=== PATIENT | female | born 1995 | race Caucasian/White ===

== ENCOUNTER 2019-01-30 13:50 | Emergency (ER) | payer OTHER, SELFPAY ==
[2019-01-30 13:59] VITALS: BP 134/72; PULSE 125; RESP 15; TEMP 37.1; O2SAT 98; BMI 31.1
--- NOTE | 2019-01-30 14:20 | ED.ABDPAIN ---
HPI - Abdominal Pain General Chief Complaint: Abdominal Pain Stated Complaint: Abdominal Pain, sent in from Walk in Time Seen by Provider: 01/30/19 14:02 Source: patient Mode of arrival: ambulatory Limitations: no limitations History of Present Illness HPI narrative: 23-year-old female comes to the emergency department complaint abdominal pain for the last 2 days. She states it woke her up from sleep at about 3:00 a.m. in the morning. Patient states that it sort of the left, started lower it has moved up a little bit more umbilical. Patient states that it does not radiate to the flank. She denies any fevers or chills. She denies any nausea or vomiting. She has had normal bowel movements. She states that she has not any had any urinary urgency frequency or dysuria. She has had vaginal bleeding that is been going on for about a month. It has been very light occasional spotting. Patient states she has had very irregular menses sometimes going several weeks or months without any bleeding and then will have prolonged periods of bleeding. She states this started after she had a Nexplanon in place a little less than a year ago. She denies any odor or other discharge. She states she has not been sexually active for several weeks. She defers any pain medication at this time. Denies any other medical issues. Denies any abdominal surgeries. Related Data Home Medications Medication Instructions Recorded Confirmed Excedrin 1 tab PO PRN PRN 01/30/19 01/30/19 etonogestrel [Nexplanon] 1 ea SUBDERMAL DIRECTED 01/30/19 01/30/19 Previous Rx's Medication Instructions Recorded doxycycline hyclate 100 mg PO BID #28 cap 01/30/19 Allergies Allergy/AdvReac Type Severity Reaction Status Date / Time No Known Drug Allergies Allergy Verified 01/30/19 13:59 Review of Systems Review of Systems ROS Unobtainable: All systems reviewed & are unremarkable except as noted in HPI and below Constitutional Denies chills, Denies fever(s), Denies lethargy and Denies weakness Gastrointestinal Gastrointestinal: Reports abdominal pain, Denies melena, Denies hematochezia, Denies change in bowel habits, Denies diarrhea, Denies nausea and Denies vomiting Genitourinary Reports abnormal menses, Reports abnormal vaginal bleeding, Denies hematuria, Denies urinary frequency, Denies dysuria, Reports pelvic pain (Left lower quadrant), Denies flank pain, Denies urinary incontinence, Denies urinary hesitancy, Denies urinary urgency, Denies vaginal discharge, Denies vaginal odor and Denies vaginal pruritus Musculoskeletal Denies back pain Integumentary/Breasts Denies rash Neurologic Denies weakness [facility] Social History Smoking Status: Current every day smoker Exam Narrative Exam Narrative: GENERAL: Alert and oriented x three, well-nourished, well-appearing female in no acute distress. HEENT: Head normocephalic, atraumatic, EOMI, pupils reactive, face symmetric, moist mucous membranes NECK: Supple, full range of motion CARDIOVASCULAR: Regular rate and rhythm without murmurs, rubs or gallops. RESPIRATORY: Breath sounds equal bilaterally, no wheezes rales or rhonchi. ABDOMEN: Soft, patient has very mild left mid quadrant tenderness. No RLQ tenderness. Normoactive bowel sounds all 4 quadrants. No guarding or rebound, rigidity, no mass : No CVA tenderness. Female: external vaginal exam is normal, no vaginal bleeding, scant brownish discharge, no bright red blood, no cervical motion tenderness, normal speculum exam, no adnexal tenderness/mass. Bimanual exam is normal, no enlarged or tender uterus. Non-gravid. EXTREMITIES: Normal range of motion, no clubbing or edema. Neurovascularly intact NEUROLOGICAL: Cranial nerves II through XII grossly intact. Moving all extremities SKIN: Warm, dry, no petechiae, no rashes or lesions. Initial Vital Signs Initial Vital Signs: Vital Signs Temperature 98.8 F 01/30/19 13:59 Pulse Rate 125 H 01/30/19 13:59 Respiratory Rate 15 01/30/19 13:59 Blood Pressure 134/72 01/30/19 13:59 Pulse Oximetry 98 01/30/19 13:59 Course Orders Ordered: ED Orders 01/30/19 14:05 Complete Blood Count AUTO DIFF Stat Comprehensive Metabolic Panel Stat Lipase Stat Partial Thromboplastin Time Stat Prothrombin Time INR Stat 01/30/19 14:38 US pelvic complete Stat 01/30/19 15:45 Chlamydia/Gonorrhea RNA APTIMA Stat Genital Culture Stat Wet Prep Tric BV Quiana Stat Discontinued Medications Ceftriaxone Sodium (Rocephin) 250 mg IM NOW ONE Stop: 01/30/19 16:31 Last Admin: 01/30/19 16:59 Dose: 250 mg Vital Signs - 8 hr 01/30/19 13:59 01/30/19 14:43 Temperature 98.8 F Pulse Rate 125 H 103 H Respiratory Rate 15 Blood Pressure 134/72 Blood Pressure [Left Arm] 120/79 Pulse Oximetry 98 99 MDM - Abdominal Pain Lab Data Attestation: I reviewed the patient's lab results. Result diagrams: 01/30/19 14:05 01/30/19 14:05 Lab Results 01/30/19 01/30/19 01/30/19 Range/Units 14:05 14:05 14:05 WBC 12.1 H (4.5-11.0) X10^3/uL RBC 4.13 (4.0-5.2) X10^6/uL Hgb 13.0 (12.0-16.0) g/dL Hct 38.2 (36-46) % MCV 92.6 (80-100) fL MCH 31.5 (26-34) PG MCHC 34.1 (30-36) % RDW 13.4 (11.6-14.8) % Plt Count 274 (150-400) X10^3/uL Neut % (Auto) 74.8 (50-75) % Lymph % (Auto) 18.7 L (25-40) % Clark % (Auto) 5.3 (3-14) % Eos % (Auto) 0.8 L (2-4) % Baso % (Auto) 0.4 (0-2) % Neut # (Auto) 9100 H (8020-3664) /uL Lymph # (Auto) 2300 (0732-1964) /uL Clark # (Auto) 600 (0-900) /uL Eos # (Auto) 100 (0-450) /uL Baso # (Auto) 0 (0-100) /uL PT 12.0 (10.1-12.7) SECONDS INR 1.0 (0.9-1.3) APTT 38 H (26.4-36.2) SECONDS Sodium 141 (137-145) mmol/L Potassium 3.8 (3.4-5.1) mmol/L Chloride 106 (98-107) mmol/L Carbon Dioxide 22 (22-32) mmol/L BUN 11 (7-17) mg/dL Creatinine 0.70 (0.52-1.04) mg/dL Estimated GFR > 60.0 (>60) mL/min BUN/Creatinine Ratio 15.7 (6-22) Glucose 111 H (70-100) mg/dL Calcium 9.7 (8.4-10.2) mg/dL Total Bilirubin 1.3 (0.2-1.3) mg/dL AST 22 (14-36) IU/L ALT 18 (9-52) IU/L Alkaline Phosphatase 48 (38-126) U/L Total Protein 8.0 (6.3-8.2) g/dL Albumin 4.7 (3.5-5.0) g/dL Globulin 3.3 (1.7-4.1) g/dL Albumin/Globulin Ratio 1.4 (1.0-2.8) Lipase 36 (23-300) U/L Point of care testing: Point of Care Testing Test Results Negative Urine Dip Bedside Urine Glucose Negative Bedside Urine Bilirubin - Negative Bedside Urine Ketone - Negative Urine Specific Pe Ell 1.030 Bedside Urine Occult Blood - Negative Bedside Urine pH 6.0 Bedside Urine Protein - Negative Bedside Urine Urobilinogen - Negative Bedside Urine Nitrite - Negative Bedside Urine Leukocytes - Negative Esterase Imaging Data pelvic US: Radiologist's impression: Ethan Guadalupe 23 F 1995 [place] [address] Ultrasound Report Signed Patient: Ethan Guadalupe LMR#: [id number] : 1995Acct:[id number] Age/Sex: 23 FDate of Service: 01/30/19 Loc: ED Accession Number: [id number] Procedure: US pelvic complete Ordering Provider: Monse Proctor D.O. PROCEDURE: US PELVIC COMPLETE INDICATIONS: PELVIC PAIN TECHNIQUE: Real-time scanning was performed of the pelvic organs, with image documentation. Additional endovaginal scanning was necessary due to incomplete visualization of the adnexal and endometrial structures by transabdominal scanning. COMPARISON: [facility] Digital Imaging, US, US OB LIMITED, 07/17/2017, 12:46. [facility] Ultrasound, US, US OB > 14 WEEKS COMPLETE ANATOMY, 07/13/2017, 8:57. [facility] Ultrasound, US, US OB > 14 WEEKS FOLLOW UP, 05/30/2017, 16:55. FINDINGS: Transabdominal scanning: Limited scanning through the kidneys shows no hydronephrosis. No pathologic free abdominal or pelvic fluid. Endovaginal scanning: Uterus: Uterus is normal in size at 5.7 x 4.0 x 3.0 cm. The endometrium measures 3 mm in combined thickness. No focal myometrial lesions are identified. No fluid is seen within the endometrium. Ovaries: The right ovary measures 4.1 x 3.6 x 2.9 cm, which is mildly enlarged related to a simple appearing 2.2 cm right ovarian cyst. Additional small right ovarian follicles are present. Blood flow is demonstrated to the right ovary, which demonstrated normal arterial Doppler waveform. The left ovary measures 2.8 x 3.3 x 1.8 cm and is normal in size without cyst or solid mass. Left ovarian follicles are present. A normal arterial Doppler waveform of the left ovary is identified. Slight hyperemia within the left adnexal region is incidentally noted. IMPRESSION: 1. Left adnexal hyperemia is of uncertain etiology and could potentially represent early pelvic inflammatory disease. No drainable or loculated fluid collections are evident. If there is clinical concern for abscess or other pelvic pathology, please consider CT with intravenous and oral contrast for further evaluation. 2. Simple appearing right ovarian cyst is likely functional and of doubtful significance. 3. Unremarkable uterus. Dictated by: Kobi White M.D. on 01/30/2019 at 15:01 Approved by: Kobi White M.D. on 01/30/2019 at 15:06 [facility] Narrative Medical decision making narrative: Patient's abdominal exam is fairly benign. We discussed potential differential could include colitis, diverticulitis, ovarian cyst, PID versus cervicitis, UTI and/or pyelonephritis. Discussed with patient urine is negative for signs of infection or hematuria, making kidney stone less likely along with pyelonephritis or UTI. Patient has had some abnormal vaginal bleeding which she relates to her Nexplanon. But no other discharge. She has not recently been sexually active. We discussed colitis versus diverticulitis but plan to start with ultrasound for evaluation. Lab work shows a slightly elevated white count but otherwise no acute changes. Ultrasound shows some left adnexal hyperemia of uncertain etiology. Is a simple appearing right ovarian cyst likely functional in doubtful insignificant. Unremarkable uterus. On pelvic exam patient has a minimal amount of brownish discharge although she has been having some vaginal bleeding. Discussed with patient we did do STD testing she has been sexually active. She was only mildly tender on exam but discussed starting her on antibiotics while awaiting culture results. Patient has many WBC's on wet prep. Cultures are pending, G/C is pending. Discharge Plan Departure Patient Disposition: Home Clinical Impression: Abdominal pain, Acute pelvic inflammatory disease (PID) Discharge Date/Time: 01/30/19 17:16 Instructions: DI for Pelvic Inflammatory Disease Activity Restrictions/Additional Instructions: Follow up in the next 5-7 days for recheck. Take antibiotics until completely gone. Antibiotics can interfere with control. Use a back up method until done with your antibiotics. Pelvic cultures are pending and will be completed in 24-48 hours. Return to the emergency department for fevers greater than 100.4 F, worsening abdominal or back pain, persistent vomiting, black or bloody stools, worsening vaginal bleeding or other new or concerning symptoms. Prescriptions: New doxycycline hyclate 100 mg capsule 100 mg PO BID Qty: 28 RF: 0 No Action Nexplanon 68 mg Implant 1 ea subdermal DIRECTED RF: 0 Excedrin 1 tab PO PRN PRN (Reason: Headache) RF: 0
[2019-01-30 14:31] LABS: Add Manual Diff / Slide Review NO; Basophils Absolute Auto 0 /uL (0-100); Basophils Percent Auto 0.4 % (0-2); Eosinophils Absolute Auto 100 /uL (0-450); Eosinophils Percent Auto 0.8 % (2-4); Hematocrit 38.2 % (36-46); Lymphocytes Absolute Auto 2300 /uL (1100-4500); Lymphocytes Percent Auto 18.7 % (25-40); Mean Corpuscular HGB Conc 34.1 % (30-36); Mean Corpuscular Hemoglobin 31.5 PG (26-34); Mean Corpuscular Volume 92.6 fL (80-100); Monocytes Absolute Auto 600 /uL (0-900); Monocytes Percent Auto 5.3 % (3-14); Neutrophils Absolute Auto 9100 /uL (1500-7000); Neutrophils Percent Auto 74.8 % (50-75); Platelet Count 274 X10^3/uL (150-400); Red Blood Cell Count 4.13 X10^6/uL (4.0-5.2); Red Cell Distribution Width 13.4 % (11.6-14.8); White Blood Cell Count 12.1 X10^3/uL (4.5-11.0)
[2019-01-30 14:36] LABS: PTT Partial Thromboplastin Tim 38 SECONDS (26.4-36.2)
[2019-01-30 14:38] LABS: Alanine Aminotransferase 18 IU/L (9-52); Albumin 4.7 g/dL (3.5-5.0); Albumin Globulin Ratio 1.4 (1.0-2.8); Alkaline Phosphatase 48 U/L (38-126); Aspartate Aminotransferase 22 IU/L (14-36); BUN Creatinine Ratio 15.7 (6-22); Bilirubin Total 1.3 mg/dL (0.2-1.3); Blood Urea Nitrogen 11 mg/dL (7-17); Calcium 9.7 mg/dL (8.4-10.2); Carbon Dioxide 22 mmol/L (22-32); Chloride 106 mmol/L (98-107); Estimated Glomerular Filt Rate > 60.0 mL/min (>60); Globulin 3.3 g/dL (1.7-4.1); Glucose 111 mg/dL (70-100); HEMOLYSIS < 15 (0-50); Lipase 36 U/L (23-300); Potassium 3.8 mmol/L (3.4-5.1); Sodium 141 mmol/L (137-145)
--- NOTE | 2019-01-30 14:38 | DI.US.S_ITS ---
PROCEDURE: US PELVIC COMPLETE INDICATIONS: PELVIC PAIN TECHNIQUE: Real-time scanning was performed of the pelvic organs, with image documentation. Additional endovaginal scanning was necessary due to incomplete visualization of the adnexal and endometrial structures by transabdominal scanning. COMPARISON: [facility] With [facility] Digital Imaging, US, US OB LIMITED, 07/17/2017, 12:46. [facility] Ultrasound, US, US OB > 14 WEEKS COMPLETE ANATOMY, 07/13/2017, 8:57. [facility] Ultrasound, US, US OB > 14 WEEKS FOLLOW UP, 05/30/2017, 16:55. FINDINGS: Transabdominal scanning: Limited scanning through the kidneys shows no hydronephrosis. No pathologic free abdominal or pelvic fluid. Endovaginal scanning: Uterus: Uterus is normal in size at 5.7 x 4.0 x 3.0 cm. The endometrium measures 3 mm in combined thickness. No focal myometrial lesions are identified. No fluid is seen within the endometrium. Ovaries: The right ovary measures 4.1 x 3.6 x 2.9 cm, which is mildly enlarged related to a simple appearing 2.2 cm right ovarian cyst. Additional small right ovarian follicles are present. Blood flow is demonstrated to the right ovary, which demonstrated normal arterial Doppler waveform. The left ovary measures 2.8 x 3.3 x 1.8 cm and is normal in size without cyst or solid mass. Left ovarian follicles are present. A normal arterial Doppler waveform of the left ovary is identified. Slight hyperemia within the left adnexal region is incidentally noted. IMPRESSION: 1. Left adnexal hyperemia is of uncertain etiology and could potentially represent early pelvic inflammatory disease. No drainable or loculated fluid collections are evident. If there is clinical concern for abscess or other pelvic pathology, please consider CT with intravenous and oral contrast for further evaluation. 2. Simple appearing right ovarian cyst is likely functional and of doubtful significance. 3. Unremarkable uterus. Dictated by: Kobi White M.D. on 01/30/2019 at 15:01 Approved by: Kobi White M.D. on 01/30/2019 at 15:06
[2019-01-30 14:43] VITALS: BP 120/79; PULSE 103; O2SAT 99
--- NOTE | 2019-01-30 14:46 | ED_ITS ---
HPI - Abdominal Pain General Chief Complaint: Abdominal Pain Stated Complaint: Abdominal Pain, sent in from [facility] Time Seen by Provider: 01/30/19 14:02 Source: patient Mode of arrival: ambulatory Limitations: no limitations History of Present Illness HPI narrative: 23-year-old female comes to the emergency department complaint abdominal pain for the last 2 days. She states it woke her up from sleep at about 3:00 a.m. in the morning. Patient states that it sort of the left, started lower it has moved up a little bit more umbilical. Patient states that it does not radiate to the flank. She denies any fevers or chills. She denies any nausea or vomiting. She has had normal bowel movements. She states that she has not any had any urinary urgency frequency or dysuria. She has had vaginal bleeding that is been going on for about a month. It has been very light occasional spotting. Patient states she has had very irregular menses sometimes going several weeks or months without any bleeding and then will have prolonged periods of bleeding. She states this started after she had a Nexplanon in place a little less than a year ago. She denies any odor or other discharge. She states she has not been sexually active for several weeks. She defers any pain medication at this time. Denies any other medical issues. Denies any abdominal surgeries. Related Data Home Medications Medication Instructions Recorded Confirmed Excedrin 1 tab PO PRN PRN 01/30/19 01/30/19 etonogestrel [Nexplanon] 1 ea SUBDERMAL DIRECTED 01/30/19 01/30/19 Previous Rx's Medication Instructions Recorded doxycycline hyclate 100 mg PO BID #28 cap 01/30/19 Allergies Allergy/AdvReac Type Severity Reaction Status Date / Time No Known Drug Allergies Allergy Verified 01/30/19 13:59 Review of Systems Review of Systems ROS Unobtainable: All systems reviewed & are unremarkable except as noted in HPI and below Constitutional Denies chills, Denies fever(s), Denies lethargy and Denies weakness Gastrointestinal Gastrointestinal: Reports abdominal pain, Denies melena, Denies hematochezia, Denies change in bowel habits, Denies diarrhea, Denies nausea and Denies vomiting Genitourinary Reports abnormal menses, Reports abnormal vaginal bleeding, Denies hematuria, Denies urinary frequency, Denies dysuria, Reports pelvic pain (Left lower quadrant), Denies flank pain, Denies urinary incontinence, Denies urinary hesitancy, Denies urinary urgency, Denies vaginal discharge, Denies vaginal odor and Denies vaginal pruritus Musculoskeletal Denies back pain Integumentary/Breasts Denies rash Neurologic Denies weakness ON LICENSE OF [facility] Social History Smoking Status: Current every day smoker Exam Narrative Exam Narrative: GENERAL: Alert and oriented x three, well-nourished, well- appearing female in no acute distress. HEENT: Head normocephalic, atraumatic, EOMI, pupils reactive, face symmetric, moist mucous membranes NECK: Supple, full range of motion CARDIOVASCULAR: Regular rate and rhythm without murmurs, rubs or gallops. RESPIRATORY: Breath sounds equal bilaterally, no wheezes rales or rhonchi. ABDOMEN: Soft, patient has very mild left mid quadrant tenderness. No RLQ tenderness. Normoactive bowel sounds all 4 quadrants. No guarding or rebound, rigidity, no mass : No CVA tenderness. Female: external vaginal exam is normal, no vaginal bleeding, scant brownish discharge, no bright red blood, no cervical motion tenderness, normal speculum exam, no adnexal tenderness/mass. Bimanual exam is normal, no enlarged or tender uterus. Non-gravid. EXTREMITIES: Normal range of motion, no clubbing or edema. Neurovascularly intact NEUROLOGICAL: Cranial nerves II through XII grossly intact. Moving all extremities SKIN: Warm, dry, no petechiae, no rashes or lesions. Initial Vital Signs Initial Vital Signs: Vital Signs Temperature 98.8 F 01/30/19 13:59 Pulse Rate 125 H 01/30/19 13:59 Respiratory Rate 15 01/30/19 13:59 Blood Pressure 134/72 01/30/19 13:59 Pulse Oximetry 98 01/30/19 13:59 Course Orders Ordered: ED Orders 01/30/19 14:05 Complete Blood Count AUTO DIFF Stat Comprehensive Metabolic Panel Stat Lipase Stat Partial Thromboplastin Time Stat Prothrombin Time INR Stat 01/30/19 14:38 US pelvic complete Stat 01/30/19 15:45 Chlamydia/Gonorrhea RNA APTIMA Stat Genital Culture Stat Wet Prep Tric BV Quiana Stat Discontinued Medications Ceftriaxone Sodium (Rocephin) 250 mg IM NOW ONE Stop: 01/30/19 16:31 Last Admin: 01/30/19 16:59 Dose: 250 mg Vital Signs - 8 hr 01/30/19 13:59 01/30/19 14:43 Temperature 98.8 F Pulse Rate 125 H 103 H Respiratory Rate 15 Blood Pressure 134/72 Blood Pressure [Left Arm] 120/79 Pulse Oximetry 98 99 MDM - Abdominal Pain Lab Data Attestation: I reviewed the patient's lab results. Result diagrams: 01/30/19 14:05 01/30/19 14:05 Lab Results 01/30/19 01/30/19 01/30/19 Range/Units 14:05 14:05 14:05 WBC 12.1 H (4.5-11.0) X10^3/uL RBC 4.13 (4.0-5.2) X10^6/uL Hgb 13.0 (12.0-16.0) g/dL Hct 38.2 (36-46) % MCV 92.6 (80-100) fL MCH 31.5 (26-34) PG MCHC 34.1 (30-36) % RDW 13.4 (11.6-14.8) % Plt Count 274 (150-400) X10^3/uL Neut % (Auto) 74.8 (50-75) % Lymph % (Auto) 18.7 L (25-40) % [place] % (Auto) 5.3 (3-14) % Eos % (Auto) 0.8 L (2-4) % Baso % (Auto) 0.4 (0-2) % Neut # (Auto) 9100 H (4134-1475) /uL Lymph # (Auto) 2300 (1701-9115) /uL Grayson # (Auto) 600 (0-900) /uL Eos # (Auto) 100 (0-450) /uL Baso # (Auto) 0 (0-100) /uL PT 12.0 (10.1-12.7) SECONDS INR 1.0 (0.9-1.3) APTT 38 H (26.4-36.2) SECONDS Sodium 141 (137-145) mmol/L Potassium 3.8 (3.4-5.1) mmol/L Chloride 106 (98-107) mmol/L Carbon Dioxide 22 (22-32) mmol/L BUN 11 (7-17) mg/dL Creatinine 0.70 (0.52-1.04) mg/dL Estimated GFR > 60.0 (>60) mL/min BUN/Creatinine Ratio 15.7 (6-22) Glucose 111 H (70-100) mg/dL Calcium 9.7 (8.4-10.2) mg/dL Total Bilirubin 1.3 (0.2-1.3) mg/dL AST 22 (14-36) IU/L ALT 18 (9-52) IU/L Alkaline Phosphatase 48 (38-126) U/L Total Protein 8.0 (6.3-8.2) g/dL Albumin 4.7 (3.5-5.0) g/dL Globulin 3.3 (1.7-4.1) g/dL Albumin/Globulin Ratio 1.4 (1.0-2.8) Lipase 36 (23-300) U/L Point of care testing: Point of Care Testing Test Results Negative Urine Dip Bedside Urine Glucose Negative Bedside Urine Bilirubin - Negative Bedside Urine Ketone - Negative Urine Specific [place] 1.030 Bedside Urine Occult Blood - Negative Bedside Urine pH 6.0 Bedside Urine Protein - Negative Bedside Urine Urobilinogen - Negative Bedside Urine Nitrite - Negative Bedside Urine Leukocytes - Negative Esterase Imaging Data pelvic US: Radiologist's impression: Ethan Guadalupe 23 F 1995 [place] [address] Ultrasound Report Signed Patient: Ethan Guadalupe LMR#: [id number] : 1995Acct:[id number] Age/Sex: 23 FDate of Service: 01/30/19 Loc: ED Accession Number: [id number] Procedure: US pelvic complete Ordering Provider: Monse Proctor D.O. PROCEDURE: US PELVIC COMPLETE INDICATIONS: PELVIC PAIN TECHNIQUE: Real-time scanning was performed of the pelvic organs, with image documentation. Additional endovaginal scanning was necessary due to incomplete visualization of the adnexal and endometrial structures by transabdominal scanning. COMPARISON: [facility] Digital Imaging, US, US OB LIMITED, 07/17/2017, 12:46. [facility] Ultrasound, US, US OB > 14 WEEKS COMPLETE ANATOMY, 07/13/2017, 8:57. [facility] Ultrasound, US, US OB > 14 WEEKS FOLLOW UP, 05/30/2017, 16:55. FINDINGS: Transabdominal scanning: Limited scanning through the kidneys shows no hydronephrosis. No pathologic free abdominal or pelvic fluid. Endovaginal scanning: Uterus: Uterus is normal in size at 5.7 x 4.0 x 3.0 cm. The endometrium measures 3 mm in combined thickness. No focal myometrial lesions are identified. No fluid is seen within the endometrium. Ovaries: The right ovary measures 4.1 x 3.6 x 2.9 cm, which is mildly enlarged related to a simple appearing 2.2 cm right ovarian cyst. Additional small right ovarian follicles are present. Blood flow is demonstrated to the right ovary, which demonstrated normal arterial Doppler waveform. The left ovary measures 2.8 x 3.3 x 1.8 cm and is normal in size without cyst or solid mass. Left ovarian follicles are present. A normal arterial Doppler waveform of the left ovary is identified. Slight hyperemia within the left adnexal region is incidentally noted. IMPRESSION: 1. Left adnexal hyperemia is of uncertain etiology and could potentially represent early pelvic inflammatory disease. No drainable or loculated fluid collections are evident. If there is clinical concern for abscess or other pelvic pathology, please consider CT with intravenous and oral contrast for further evaluation. 2. Simple appearing right ovarian cyst is likely functional and of doubtful significance. 3. Unremarkable uterus. Dictated by: Kobi White M.D. on 01/30/2019 at 15:01 Approved by: Kobi White M.D. on 01/30/2019 at 15:06 [facility] Narrative Medical decision making narrative: Patient's abdominal exam is fairly benign. We discussed potential differential could include colitis, diverticulitis, ovarian cyst, PID versus cervicitis, UTI and/or pyelonephritis. Discussed with patient urine is negative for signs of infection or hematuria, making kidney stone less likely along with pyelonephritis or UTI. Patient has had some abnormal vaginal bleeding which she relates to her Nexplanon. But no other discharge. She has not recently been sexually active. We discussed colitis versus diverticulitis but plan to start with ultrasound for evaluation. Lab work shows a slightly elevated white count but otherwise no acute changes. Ultrasound shows some left adnexal hyperemia of uncertain etiology. Is a simple appearing right ovarian cyst likely functional in doubtful insignificant. Unremarkable uterus. On pelvic exam patient has a minimal amount of brownish discharge although she has been having some vaginal bleeding. Discussed with patient we did do STD testing she has been sexually active. She was only mildly tender on exam but discussed starting her on antibiotics while awaiting culture results. Patient has many WBC's on wet prep. Cultures are pending, G/C is pending. Discharge Plan Departure Patient Disposition: Home Clinical Impression: Abdominal pain, Acute pelvic inflammatory disease (PID) Discharge Date/Time: 01/30/19 17:16 Instructions: DI for Pelvic Inflammatory Disease Activity Restrictions/Additional Instructions: Follow up in the next 5-7 days for recheck. Take antibiotics until completely gone. Antibiotics can interfere with control. Use a back up method until done with your antibiotics. Pelvic cultures are pending and will be completed in 24-48 hours. Return to the emergency department for fevers greater than 100.4 F, worsening abdominal or back pain, persistent vomiting, black or bloody stools, worsening vaginal bleeding or other new or concerning symptoms. Prescriptions: New doxycycline hyclate 100 mg capsule 100 mg PO BID Qty: 28 RF: 0 No Action Nexplanon 68 mg Implant 1 ea subdermal DIRECTED RF: 0 Excedrin 1 tab PO PRN PRN (Reason: Headache) RF: 0
[2019-01-30] MEDS: cefTRIAXone 500 MG VIAL 250 MG IM (16:59)
[2019-01-30 17:15] VITALS: BP 116/65; PULSE 87; RESP 16; TEMP 36.5; O2SAT 99
[2019-02-06 08:53] LABS: C.trachomatis RNA NOT DETECTED; N.gonorrhoeae RNA NOT DETECTED
== END 2019-01-30 17:16 | disposition home or self-care (01) ==
PROVIDERS: Emergency Provider Emergency Medicine
DX: R10.9 Unspecified abdominal pain (principal); N73.0 Acute parametritis and pelvic cellulitis
CPT/HCPCS: 36591; 76856; 80053; 81003; 81025; 83690; 85025; 85610; 85730; 87070; 87077; 87205; 87210; 87491; 87591; 96372; 99283; 99284; J0696